=== PATIENT | female | born 1990 | race Caucasian/White ===

== ENCOUNTER 2020-09-17 05:04 | Inpatient (IN) | payer SELFPAY ==
[2020-09-17] VITALS (238 sets, daily range): BP systolic 57–134; BP diastolic 27–96; PULSE 63–131; TEMP 36.4–37.2; O2SAT 83–100
--- NOTE | 2020-09-17 05:04 | LDADM ---
This patient, Kasey Shea, was admitted to Labor/Delivery/Recovery 107 on 09/17/20 at 05:04. Plans for labor, pain management and were discussed with patient. Patient/family oriented to hospital policies and general routines including ID bracelet, bed and alarms, visiting hours, pain management, procedures, bathroom and other care routines, personal items, smoking policy, room service/diet and guest tray routines, infant security routines, and visiting hours. Patient/Family are encouraged to report perceived risks to care and to ask questions if they do not understand what they are told or what they should do. See OBIX for further documentation.
[2020-09-17 06:16] LABS: Basophils Percent Auto 0.5 % (0.2-1.2); Eosinophils Absolute Auto 0.4 K/mm3 (0-0.3); Eosinophils Percent Auto 4.4 % (0-4.4); Hemoglobin 12.1 g/dL (12.0-15.0); Immature Granulocyte Absolute 0.09 K/mm3 (0.00-0.031); Immature Granulocyte Percent A 1.1 % (0-0.5); Lymphocytes Absolute Auto 1.71 K/mm3 (0.9-3.2); Lymphocytes Percent Auto 21.3 % (18.3-44.2); Mean Corpuscular HGB Conc 35.6 g/dl (32-36); Mean Corpuscular Hemoglobin 30.4 pg (26-34); Mean Corpuscular Volume 85.4 fl (80-100); Monocytes Absolute Auto 0.7 K/mm3 (0.1-0.6); Monocytes Percent Auto 9.2 % (2.6-8.5); Neutrophils Absolute Auto 5.1 K/mm3 (1.3-6.7); Neutrophils Percent Auto 63.5 % (45.5-73.1); Platelet Count Result 137 k/mm3 (150-375); Red Blood Count 3.98 M/mm3 (4.2-5.4); Red Cell Distribution Width 14.1 % (11.5-14.5)
--- NOTE | 2020-09-17 06:19 | P.PNAN_ITS ---
Anes - Eval Pre Procedure Procedure: Labor epidural Date/Time: 09/17/20 06:19 Surgeon: viet Preop Diagnosis: pain during labor Pre Op Diagnosis: IOL Patient Data Age: 29 Gender: F Height: Weight: Last Vital Signs Pulse 92 09/17/20 06:15 BP 94/58 L 09/17/20 06:15 Allergies Allergy/AdvReac Type Severity Reaction Status Date / Time sulfamethoxazole Allergy Intermediate Hives / Verified 08/27/20 12:34 Red Face trimethoprim Allergy Intermediate Hives / Verified 08/27/20 12:34 Red Face Sulfa (Sulfonamide Allergy Unknown Hives / Verified 08/27/20 12:34 Antibiotics) Red Face Home Medications Medication Instructions Recorded Confirmed Type cetirizine [Zyrtec] 10 mg PO DAILY 08/27/20 08/27/20 History cholecalciferol (vitamin D3) 50 mcg PO DAILY 08/27/20 08/27/20 History [Vitamin D3] ergocalciferol (vitamin D2) 1,250 mcg PO WEEKLY 08/27/20 08/27/20 History [Vitamin D2] famotidine [Pepcid AC] 10 mg PO DAILY 08/27/20 08/27/20 History ferrous sulfate 325 mg PO DAILY 08/27/20 08/27/20 History prenat.vits,wendi,pzr-nawn-cstnb 1 tablet PO DAILY 08/27/20 08/27/20 History [ #2] Laboratory Tests 09/17/20 09/17/20 05:56 05:56 WBC 8.0 K/mm3 K/mm3 (4.5-10.0) RBC 3.98 M/mm3 L M/mm3 (4.2-5.4) Hgb 12.1 g/dL g/dL (12.0-15.0) Hct 34.0 % L % (37.0-47.0) MCV 85.4 fl fl (80-100) MCH 30.4 pg pg (26-34) MCHC 35.6 g/dl g/dl (32-36) RDW 14.1 % % (11.5-14.5) Plt Count 137 k/mm3 L k/mm3 (150-375) MPV 10.0 fl fl (7.4-10.4) Immature Gran % (Auto) 1.1 % H % (0-0.5) Neut % (Auto) 63.5 % % (45.5-73.1) Lymph % (Auto) 21.3 % % (18.3-44.2) [place] % (Auto) 9.2 % H % (2.6-8.5) Eos % (Auto) 4.4 % % (0-4.4) Baso % (Auto) 0.5 % % (0.2-1.2) Lymph # (Auto) 1.71 K/mm3 K/mm3 (0.9-3.2) [place] # (Auto) 0.7 K/mm3 H K/mm3 (0.1-0.6) Eos # (Auto) 0.4 K/mm3 H K/mm3 (0-0.3) Baso # (Auto) 0.0 K/mm3 K/mm3 (0.0-0.1) Abs Immat Gran (auto) 0.09 K/mm3 H K/mm3 (0.00-0.031) Absolute Neuts (auto) 5.1 K/mm3 K/mm3 (1.3-6.7) Absolute Nucleated RBC 0.0 K/mm3 K/mm3 (0.0-0.012) Nucleated RBC % 0.0 % % (0.0-0.2) RPR Pending Patient hx anesthesia problems: none Family hx anesthesia problems: none [facility] Family History Family History (Updated 08/27/20 @ 12:41 by Nika Mata RN) Father Pre-diabetes High cholesterol Hypertension Social History Social History Substance use: never Spiritual care concerns: No Exam Day of Procedure 09/17/20 06:19
[2020-09-17] MEDS: OXYTOCIN 30 UNITS/NS 500 ML 30 UNITS/500 ML BAG IV CONT (06:30)
[2020-09-17] MEDS: LACTATED RINGERS 1,000 ML 125 ML IV CONT ×4 (06:30→18:26)
--- NOTE | 2020-09-17 08:33 | WPDOBADMIT ---
Obstetrics - Admit Note Admission Note: record reviewed. No pertinent additions to the history and/or any subsequent changes in the physical findings that are not consistent with the expected course of the were found. Additions to the history and/or subsequent changes in the physical findings follow. None.Here for MIL. Cervix 250/-3 AROM with clear fluid. FHTS reactive
[2020-09-17 13:02] LABS: Rapid Plasma Reagin Non-Reactive (NonReactive)
[2020-09-17] MEDS: ONDANSETRON INJ 4 MG/2 ML VIAL IV PUSH (19:27)
--- NOTE | 2020-09-17 22:57 | PM.OBPRVD ---
OB - Delivery Note Procedure Delivery date: 09/17/20 Procedure: 39 week IUP events: Labor Induction Intrapartal events: None Induction method: AROM and per pitocin protocol Delivery monitor: internal FHT and internal uterine Route of delivery: Laceration Description: None Specimen: No Quantitative Blood Loss (ml): 200 Anesthesia type: Epidural Disposition: floor [place] Baby Date of : 09/17/20 Weeks of gestation at delivery: 39 Infant gender: Female presentation: vertex position: Right Occiput Anterior Placenta delivery description: Spontaneous cord vessel description: 3 Vessels score one minute: 9 score five minutes: 9
--- NOTE | 2020-09-17 22:59 | PM.OBDSVD ---
DS: Admitting Diagnosis Admitting Diagnosis Admitting Diagnosis: IUP 39 wks for RAFAEL DS: Discharge Diagnosis Discharge Diagnosis (1) (normal spontaneous vaginal delivery): Code(s): O80 - Encounter for full-term uncomplicated delivery Status: Acute (2) 39 weeks gestation of : Code(s): Z3A.39 - 39 weeks gestation of Status: Acute OB - DS: Summary OB Procedures : Ultrasound OB Procedures Intrapartum: Spontaneous Vag Delivery OB Procedures: : None Peripartum Data Delivery Method: Natural Vaginal Laceration Description: None complications: none Status at Discharge Functional status at discharge: independent ambulation Overall status at discharge: patient is progressing back to baseline Time Spent with Patient Time attestation: Total time spent providing and/or coordinating discharge services: DS: Data Data Completed and Pending Labs on day of discharge: Labs from last 24 hours 09/17/20 09/17/20 09/17/20 05:56 05:56 05:56 WBC 8.0 RBC 3.98 L Hgb 12.1 Hct 34.0 L MCV 85.4 MCH 30.4 MCHC 35.6 RDW 14.1 Plt Count 137 L MPV 10.0 Immature Gran % (Auto) 1.1 H Neut % (Auto) 63.5 Lymph % (Auto) 21.3 [place] % (Auto) 9.2 H Eos % (Auto) 4.4 Baso % (Auto) 0.5 Lymph # (Auto) 1.71 [place] # (Auto) 0.7 H Eos # (Auto) 0.4 H Baso # (Auto) 0.0 Abs Immat Gran (auto) 0.09 H Absolute Neuts (auto) 5.1 Absolute Nucleated RBC 0.0 Nucleated RBC % 0.0 RPR Non-reactive Blood Type A Positive Antibody Screen Negative Discharge Plan Discharge Attending physician on discharge: Abeba Raman Discharging Clinician: Abeba Raman Anticipated Discharge Date/Time: 09/19/20 23:00 Patient Disposition: Home, Self-Care Activity: may shower and pelvic rest Diet: regular Patient Instructions: Antibiotic Form Stand Alone Forms: General Discharge Information Follow-up/Referrals: Abeba Raman MD [Physician] - 6 Weeks Discharge Medications: Continued famotidine [Pepcid AC] 10 mg Tablet 10 mg PO DAILY RF: 0 ergocalciferol (vitamin D2) [Vitamin D2] 1,250 mcg (50,000 unit) Capsule 1,250 mcg PO WEEKLY RF: 0 #2 Tablet 1 tablet PO DAILY RF: 0 cholecalciferol (vitamin D3) [Vitamin D3] 50 mcg (2,000 unit) Capsule 50 mcg PO DAILY RF: 0 Zyrtec 10 mg Capsule 10 mg PO DAILY RF: 0 Discontinued ferrous sulfate 325 mg (65 mg iron) Tablet 325 mg PO DAILY RF: 0 Date of admission: 09/17/20 05:04 Primary Care Provider: PHYSICIAN,FINAL INSPECTOR AND TESTER Admitting Provider: Abeba Raman Attending physician on admission: Abeba Raman Condition: Stable Care Plan Goals: Plans Liletta IUD for bc
[2020-09-17] MEDS: OXYTOCIN 30 UNITS/NS 500 ML 30 UNITS/500 ML BAG 125 UNITS IV CONT (23:18)
[2020-09-18] VITALS (20 sets, daily range): BP systolic 104–116; BP diastolic 52–92; PULSE 74–104; RESP 16–18; TEMP 36.7–36.8; O2SAT 97–100; BMI 41.3
[2020-09-18] MEDS: IBUPROFEN 600 MG TABLET PO ×4 (00:57→23:55)
[2020-09-18] MEDS: WITCH HAZEL 40 PADS 1 PAD TOPICAL (00:57)
--- NOTE | 2020-09-18 01:25 | OBPPTRN ---
Patient transferred to post room #284 via wheelchair. Support person present. Oriented to unit, room, information board, rooming in, admission packet and security measures. Patient verbalizes understanding.
[2020-09-18] MEDS: ACETAMINOPHEN 325 MG TABLET 650 MG PO ×3 (02:00→21:00)
[2020-09-18 05:10] LABS: Hematocrit 32.5 % (37.0-47.0); Hemoglobin 11.1 g/dL (12.0-15.0)
--- NOTE | 2020-09-18 07:46 | PM.OBPNVD ---
OB - PN: Subj Subjective Date/time seen: 09/18/20 07:46 Patient comments: no complaints and pain well controlled baby status: doing well OB - PN: Obj Data Labs CBC & Chem 7: 09/18/20 04:47 Labs: Laboratory Results - last 24 hr 09/17/20 09/18/20 05:56 04:47 Hgb 11.1 L Hct 32.5 L RPR Non-reactive OB - PN A/P Assessment and Plan (1) (normal spontaneous vaginal delivery): Code(s): O80 - Encounter for full-term uncomplicated delivery Status: Acute Plan day: 1 Plan: routine care and other (plans Andres for bc) Time Spent With Patient Time: Total time spent is greater than 50% in coordination of care (as documented) at patient's floor/unit and/or counseling patient: Exam : Bimanual exam- vagina & uterus: other (Uterus firm, nt @U)
--- NOTE | 2020-09-18 07:55 | WPDANLDPN2 ---
Anes-Prog Note L&D Date/Time: 09/18/20 07:55 Comfortable throughout: labor and delivery Neuraxial method: epidural Epidural/Spinal procedure site: clean & non-tender Neuro status: Neuro function grossly intact. Cardiovascular status: normal Respiratory status: normal Airway patency: baseline Mental status: baseline Post-Op hydration status: normal Vital Signs: Last Vital Signs Temp 36.7 C 09/18/20 01:25 Pulse 82 09/18/20 01:25 Resp 16 09/18/20 01:25 BP 106/62 09/18/20 01:25 Pulse Ox 98 09/18/20 01:25 Pain score (VAS): no complaints I/O: Intake & Output 09/17/20 09/17/20 09/18/20 15:59 23:59 07:59 Intake Total 2000 1500 Output Total 200 150 Balance 2000 1300 -150 Post-procedural complaints: none Patient feedback: Patient satisfied with anesthetic care.
[2020-09-18] MEDS: MULTIVIT/MIN/PREN/FOL AC/IRON TABLET 1 TAB PO (08:11)
[2020-09-18] MEDS: DOCUSATE SODIUM 100 MG CAPSULE PO (08:11)
[2020-09-18] MEDS: FAMOTIDINE 10 MG TABLET PO (08:12)
--- NOTE | 2020-09-19 06:22 | PM.OBPNVD ---
OB - PN: Subj Subjective Date/time seen: 09/19/20 06:22 Patient comments: no complaints baby status: doing well OB - PN: Obj Data Labs CBC & Chem 7: 09/18/20 04:47 OB - PN A/P Plan day: 2 Plan: routine care, discharge home, follow up 6 weeks and other (charla) Time Spent With Patient Time: Total time spent is greater than 50% in coordination of care (as documented) at patient's floor/unit and/or counseling patient: Exam : Bimanual exam- vagina & uterus: other (Uterus firm, nt @U)
[2020-09-19] MEDS: MULTIVIT/MIN/PREN/FOL AC/IRON TABLET 1 TAB PO (08:01)
[2020-09-19] MEDS: DOCUSATE SODIUM 100 MG CAPSULE PO (08:01)
[2020-09-19] MEDS: WITCH HAZEL 40 PADS 1 PAD TOPICAL (08:01)
[2020-09-19] MEDS: BENZOCAINE 20% AER SPR (*SP) 56 GM CAN 1 SPRAY TOPICAL (08:01)
[2020-09-19] MEDS: LANOLIN (LANSINOH) 7.5 GM CREAM 1 APPLIC TOPICAL (08:02)
[2020-09-19 08:05] VITALS: BP 111/72; PULSE 63; RESP 18; TEMP 37; O2SAT 99
--- NOTE | 2020-09-19 08:48 | PC.NURSE ---
Consulted with patient, reviewed infant feeding cues, frequencies, duration of feedings, feeding elimination flow sheet, and signs of adequate intake. Mom put infant to breast independently. Reviewed positioning/alignment, holding breast and asymmetrical latch on. Encouraged mom to keep in close to her with tummy to mummy and provide head support during feeding. was able to latch correctly. Infant nursed eagerly, with steady draws and frequent swallowing noted. Reviewed signs of a correct latch, effective nursing and suck swallow ratio. Infant was able to maintain latch without discomfort to mother. Nipple care reviewed. Instructed mother to call out for RN assistance if she is unable to latch for feeding or she has discomfort with nursing. Instructed feeding should be initiated three hours from start of last feeding or if feeding cues are noted before. Mother voiced understanding of information shared. Mother verbalizes she is able to independently latch with appropriate positioning/alignment. She states she has minimal nipple discomfort only at the first latch, is feeding as required and waking infant to feed if needed. Infant has had 8 effective feedings in the past 24 hours, and is currently meeting outcomes for weight, output, jaundice and feeding frequencies. Will continue to monitor for more stool output. Mother states she feels confident to continue effective at home. Reviewed transition to breast milk, signs of adequate intake, and engorgement/relief. Instructed to call ICP if intake/output less than required. Reviewed community resources on the [facility] website and in the Mom/Baby guide. Information on outpatient services provided. Mother has no further questions at this time.
[2020-09-19 09:05] VITALS: PULSE 74; RESP 16; O2SAT 97
[2020-09-19] MEDS: IBUPROFEN 600 MG TABLET PO (09:08)
[2020-09-20 10:45] VITALS: BP 127/78; PULSE 75; RESP 20; TEMP 36.9; O2SAT 100
== END 2020-09-19 12:00 | disposition home or self-care (01) | DRG 560 ==
LOC: ANHLDR 23:01 → ANHOB2 09-18 01:59
PROVIDERS: Admitting Provider Obstetrics & Gynecology Gynecology; Visit Provider Obstetrics & Gynecology Gynecology
DX: O36.8330 Maternal care for abnormalities of the fetal heart rate or rhythm, third trimester, not applicable or unspecified (principal); Z37.0 Single live birth; Z3A.39 39 weeks gestation of pregnancy
CPT/HCPCS: 36415; 85014; 85018; 85025; 86592; 86850; 86900; 86901; A9270; J2405; J2590; J2795; J7120

== ENCOUNTER 2022-07-24 21:32 | Emergency (ER) | payer SELFPAY ==
[2022-07-24 21:39] VITALS: BP 134/94; PULSE 80; RESP 16; TEMP 36.6; O2SAT 96
--- NOTE | 2022-07-24 21:58 | ED.GENADULT ---
HPI - General Adult General Chief complaint: Nausea/Vomiting/Diarrhea Stated complaint: n/v/d, hives Time Seen by Provider: 07/24/22 21:49 Source: patient Mode of arrival: ambulatory Limitations: no limitations History of Present Illness HPI narrative: Presents c/o developing hives this afternoon which then lead to N/V/D. Reports multiple episodes diarrhea with continued nausea currently. States hives resolved after taking Benadryl this afternoon. Denies diff breathing, swallowing or swelling of tongue. LMP 1 week ago. Related Data Home Medications Medication Instructions Recorded Confirmed prenat.vits,wendi,uae-vgxe-mlsyi 1 tablet PO DAILY 08/27/20 08/27/20 clindamycin phosphate 1 % topical 1 applic topical DAILY 06/25/22 solution fluticasone propionate 50 1 spray intranasal DAILY 06/25/22 mcg/actuation nasal spray,suspension (Flonase Allergy Relief) olopatadine 0.2 % eye drops 1 drp EACH EYE DAILY 06/25/22 (Pataday Once Daily Relief) Allergies Allergy/AdvReac Type Severity Reaction Status Date / Time sulfamethoxazole Allergy Intermediate Hives / Verified 09/24/21 14:28 Red Face trimethoprim Allergy Intermediate Hives / Verified 09/24/21 14:28 Red [place] Sulfa (Sulfonamide Allergy Unknown Hives / Verified 09/24/21 14:28 Antibiotics) Red Face sulfamethizole Allergy Unknown Verified 09/24/21 14:28 Review of Systems Review of Systems: CONSTITUTIONAL: Denies fever, chills, or sweats. EYES: Denies visual changes, redness, or discharge. ENT: Denies rhinorrhea, congestion, sore throat, or otalgia. CARDIOVASCULAR: Denies chest pain, palpitations, or edema. RESPIRATORY: Denies cough or dyspnea. GASTROINTESTINAL: Nausea with Diarrhea currently. Vomiting this afternoon. GENITOURINARY: Denies dysuria or hematuria. SKIN: Rash, hives with itching this afternoon but resolved following benadryl. MUSCULOSKELETAL: Denies back pain, joint pain, or myalgia. NEUROLOGIC: Denies headache, numbness, or weakness. PSYCHIATRIC: Denies anxiety or depression. [facility] Past Medical History Medical History (Updated 07/24/22 @ 23:27 by Moris Frey APRN) PCOS (polycystic ovarian syndrome) Plantar fasciitis Seasonal allergic rhinitis Vitamin D deficiency Surgical History Surgical History History of cholecystectomy Family History Family History (Updated 06/25/22 @ 10:18 by Arianne Medellin CMA) Father Pre-diabetes High cholesterol Hypertension Asthma Mother No problems noted. Sibling Anxiety Grandparent Rheumatoid arthritis Grandparent Diabetes mellitus Social History Social History (Updated 06/25/22 @ 10:04 by Arianne Medellin CMA) Smoking status: Never smoker Second hand tobacco smoke exposure: No Alcohol intake: current Substance use: never Substance use type: does not use Gender identity (if verbalized by the patient): Female Sexual Orientation (if Verbalized by the Patient): Straight or Heterosexual Spiritual care concerns: No Agree to blood products: Yes Exam Narrative: GENERAL: Well-appearing, well-nourished, and in no acute distress. HEAD: Normocephalic, atraumatic. EYES: PERRLA and EOMI. ENT: Nares clear, no rhinorrhea or epistaxis. Mucous membranes moist. NECK: Supple. CHEST: Clear to auscultation. No respiratory distress. HEART: Regular rate and rhythm. No murmur heard. Normal peripheral pulses. ABDOMEN: Soft, nontender, nondistended, normal active bowel sounds. EXTREMITIES: Normal range of motion. No edema. SKIN: Warm, dry, no rash. NEURO: No focal deficits. Alert and oriented x3. PSYCH: Normal mood and affect. Course Course Emergency Course: Patient reports feeling much better following medication and IV fluids. States she is ready to go home. Offered to provide a prescription for Zofran for nausea vomiting at home but patient declined stating she did not ne
[2022-07-24] MEDS: SODIUM CHLORIDE 0.9% IV 1,000 ML 999 ML IV CONT (22:16)
[2022-07-24] MEDS: PROCHLORPERAZINE EDISYLATE 10 MG/2 ML VIAL IV PUSH (22:16)
[2022-07-24] MEDS: diphenhydrAMINE HCl INJ 50 MG/ML VIAL 25 MG IV PUSH (22:16)
[2022-07-24 22:21] LABS: Basophils Percent Auto 0.3 % (0.2-1.2); Eosinophils Absolute Auto 0.1 K/mm3 (0-0.3); Eosinophils Percent Auto 0.4 % (0-4.4); Hematocrit 44.6 % (37.0-47.0); Immature Granulocyte Absolute 0.03 K/mm3 (0.00-0.031); Immature Granulocyte Percent A 0.2 % (0-0.5); Lymphocytes Absolute Auto 0.95 K/mm3 (0.9-3.2); Lymphocytes Percent Auto 7.9 % (18.3-44.2); Mean Corpuscular HGB Conc 33.6 g/dl (32-36); Mean Corpuscular Hemoglobin 28.6 pg (26-34); Mean Platelet Volume 9.8 fl (7.4-10.4); Monocytes Absolute Auto 0.5 K/mm3 (0.1-0.6); Monocytes Percent Auto 3.8 % (2.6-8.5); Neutrophils Absolute Auto 10.5 K/mm3 (1.3-6.7); Neutrophils Percent Auto 87.4 % (45.5-73.1); Platelet Count Result 276 k/mm3 (150-375); Red Blood Count 5.25 M/mm3 (4.2-5.4); Red Cell Distribution Width 12.5 % (11.5-14.5); White Blood Count 12.1 K/mm3 (4.5-10.0)
[2022-07-24 22:22] LABS: Appearance Urine Clear (Clear); Bilirubin Urine 1+ (Negative); Blood Urine Negative (Negative); Color Urine Yellow (Yellow); Glucose Urine UA Negative (Negative); Ketones Urine 3+ mg/dL (Negative); Leukocyte Esterase Ur Negative LEU/UL (Negative); Nitrate Urine Negative (Negative); Protein Urine Negative (Negative); Specific Grav Ur >= 1.030 (1.001-1.035); Urobilinogen Urine 0.2 mg/dL (<2.0); pH Urine 5.5 (5.0-9.0)
[2022-07-24 22:29] LABS: Mucus Urine Few /lpf; Squamous Epithelial Cell Urine Many /hpf (Few)
[2022-07-24 22:30] LABS: Alanine Aminotransferase 33 U/L (6-35); Albumin Level 4.8 g/dL (3.5-5.1); Alkaline Phosphatase 65 U/L (38-126); Anion Gap 16 mmol/L (8-16); Aspartate Amino Transferase 36 U/L (14-36); Bilirubin,Total 0.6 mg/dL (0.2-1.3); Blood Urea Nitrogen 15 mg/dL (7-17); Calcium 9.1 mg/dL (8.4-10.2); Carbon Dioxide 25 mmol/L (22-30); Chloride 100 mmol/L (98-107); Estimated CRCL calculation 96 ml/min; Estimated Glomerular Filt Rate > 60; Glucose 115 mg/dL (65-110); Lipase 184 U/L (23-300); Potassium 3.9 mmol/L (3.4-5.0); Sodium 141 mmol/L (137-145)
[2022-07-24 22:36] LABS: Add Urine Microscopic? YES
[2022-07-24 23:36] VITALS: BP 114/76; PULSE 86; RESP 14; O2SAT 96
== END 2022-07-24 23:36 | disposition home or self-care (01) ==
PROVIDERS: Emergency Provider Nurse Practitioner; PCP Family Medicine
DX: T78.40XA Allergy, unspecified, initial encounter (principal); R19.7 Diarrhea, unspecified; R11.2 Nausea with vomiting, unspecified; E28.2 Polycystic ovarian syndrome; E55.9 Vitamin D deficiency, unspecified
CPT/HCPCS: 36415; 80053; 81001; 81025; 83690; 85025; 96361; 96374; 96375; 99284; J0780; J1200; J7030

== ENCOUNTER → 2023-07-13 10:19 | Outpatient (CLI) | payer SELFPAY ==
--- NOTE | ~2023-07-13 | US_ITS ---
EXAMINATION: US OB follow up DATE: 07/13/2023 10:58 INDICATION: Possible breech position TECHNIQUE: Real-time transabdominal obstetric ultrasound. FINDINGS: No prior studies for comparison. There is a single living fetus in breech presentation. The placenta is posterior/fundal without plac enta previa. Placental margin to the cervix is 4.4 cm. Amniotic fluid index is normal measuring 15.6 cm. cardiac activity and movement is noted with a heart rate of 144 beats per minute. T he amniotic fluid volume is normal. The following biometric data were obtained: BPD: 88mm corresponds to gestational age 35 weeks 3 days. Head circumference: 314mm corresponds to gestational age 35 weeks 2 days. Abdominal circumference: 332mm corresponds to gestational age 37 weeks 1 days. Femur length: 69mm corresponds to gestational age 35 weeks 2 days. Estimated weight: 2893grams +/- 434grams.] IMPRESSION: 1. Single living intrauterine in breech presentation with an estimated gestational age of 35 weeks 6 days by current ultrasound. 2. Normal placenta. Reviewed, dictated and finalized at location B. IMPRESSION: 1. Single living intrauterine in breech presentation with an estimat ed gestational age of 35 weeks 6 days by current ultrasound. 2. Normal placenta.
== END ==
PROVIDERS: PCP Advanced Practice Midwife; Visit Provider Advanced Practice Midwife
DX: O32.1XX0 Maternal care for breech presentation, not applicable or unspecified (principal); Z3A.35 35 weeks gestation of pregnancy
CPT/HCPCS: 76816

== ENCOUNTER 2023-07-30 10:55 | Inpatient (IN) | payer SELFPAY ==
[2023-07-30] VITALS (116 sets, daily range): BP systolic 54–220; BP diastolic 29–197; PULSE 66–276; RESP 16; TEMP 36.5–37.5; O2SAT 82–100; BMI 40.2
[2023-07-30] MEDS: LACTATED RINGERS 1,000 ML 125 ML IV CONT ×3 (11:30→21:44)
--- NOTE | 2023-07-30 12:03 | WPDOBADMIT ---
Obstetrics - Admit Note Admission Note: record reviewed. No pertinent additions to the history and/or any subsequent changes in the physical findings that are not consistent with the expected course of the were found. Additions to the history and/or subsequent changes in the physical findings follow. Here at 38 5/7 wks with SROM in early labor. Per RN cervix 2-3/60/-2 and per u/s just now Vertex presentation. Will Obs for 6 hours and augment if needed with pitocin. FHTs with variable x 2. Continue close monitoring.
[2023-07-30 12:18] LABS: Basophils Percent Auto 0.4 % (0.2-1.2); Eosinophils Absolute Auto 0.3 K/mm3 (0-0.3); Eosinophils Percent Auto 2.5 % (0-4.4); Hematocrit 35.8 % (37.0-47.0); Hemoglobin 11.8 g/dL (12.0-15.0); Immature Granulocyte Absolute 0.05 K/mm3 (0.00-0.031); Immature Granulocyte Percent A 0.5 % (0-0.5); Lymphocytes Absolute Auto 1.04 K/mm3 (0.9-3.2); Lymphocytes Percent Auto 10.3 % (18.3-44.2); Mean Corpuscular Hemoglobin 28.5 pg (26-34); Mean Corpuscular Volume 86.5 fl (80-100); Mean Platelet Volume 10.1 fl (7.4-10.4); Monocytes Absolute Auto 0.6 K/mm3 (0.1-0.6); Monocytes Percent Auto 5.9 % (2.6-8.5); Neutrophils Absolute Auto 8.1 K/mm3 (1.3-6.7); Neutrophils Percent Auto 80.4 % (45.5-73.1); Platelet Count Result 131 k/mm3 (150-375); Red Blood Count 4.14 M/mm3 (4.2-5.4); Red Cell Distribution Width 14.4 % (11.5-14.5); White Blood Count 10.1 K/mm3 (4.5-10.0)
--- NOTE | 2023-07-30 14:10 | ADMGEN ---
This patient, Kasey Shea, was admitted to Labor/Delivery/Recovery 105-00. Patient/family oriented to hospital policies and general routines including ID bracelet, bed and alarms, visiting hours, pain management, procedures, bathroom and other care routines, personal items, smoking policy, room service/diet, and visiting hours. Information on how to activate the Rapid Response Team has been discussed. Patient/Family are encouraged to report perceived risks to care and to ask questions if they do not understand what they are told or what they should do.
[2023-07-30 14:27] LABS: Rapid Plasma Reagin Non-Reactive (NonReactive)
[2023-07-30] MEDS: SODIUM CHLORIDE 0.9% IV 300 ML 600 ML I-UTERINE (15:05)
[2023-07-30] MEDS: SODIUM CHLORIDE 0.9% IV 1,000 ML 125 ML I-UTERINE ×2 (15:35→20:54)
[2023-07-30] MEDS: OXYTOCIN 30 UNITS/NS 500 ML 30 UNITS/500 ML BAG IV CONT (15:43)
--- NOTE | 2023-07-30 16:29 | WPDANESEPP ---
Anes - Eval Pre Procedure Procedure: Operation Date: 08/04/23 07:30 Proposed Procedures p Section - Abeba Raman MD Date/Time: 07/30/23 16:29 Pre Op Diagnosis: labor Patient Data Age: 32 Gender: F Height: 1.6 m Weight: 103 kg Last Vital Signs Temp 36.5 C 07/30/23 15:00 Pulse 94 07/30/23 16:01 BP 136/75 07/30/23 16:01 Pulse Ox 99 07/30/23 11:18 O2 Del Method Room Air 07/30/23 14:07 Allergies Allergy/AdvReac Type Severity Reaction Status Date / Time sulfamethoxazole Allergy Intermediate Hives / Verified 07/30/23 14:03 Red Face trimethoprim Allergy Intermediate Hives / Verified 07/30/23 14:03 Red [place] Sulfa (Sulfonamide Allergy Unknown Hives / Verified 07/30/23 14:03 Antibiotics) Red [place] sulfamethizole Allergy Unknown Rash Verified 07/30/23 14:03 Home Medications Medication Instructions Recorded Confirmed Type prenat.vits,wendi,ata-jrqb-vxnep 1 tablet PO DAILY 08/27/20 07/30/23 History clindamycin phosphate 1 % topical 1 applic topical DAILY 06/25/22 07/30/23 History solution fluticasone propionate 50 1 spray intranasal DAILY 06/25/22 07/30/23 History mcg/actuation nasal spray,suspension (Flonase Allergy Relief) olopatadine 0.2 % eye drops 1 drp EACH EYE DAILY 06/25/22 07/30/23 History (Pataday Once Daily Relief) cholecalciferol (vitamin D3) 50 50 mcg PO DAILY 07/13/23 07/30/23 History mcg (2,000 unit) tablet B6-500 50 mg PO DAILY 07/30/23 07/30/23 History Unisom (diphenhydramine) 1 tab-cap PO DAILY 07/30/23 07/30/23 History Laboratory Tests 07/30/23 12:13 WBC 10.1 H K/mm3 (4.5-10.0) RBC 4.14 L M/mm3 (4.2-5.4) Hgb 11.8 L D g/dL (12.0-15.0) Hct 35.8 L % (37.0-47.0) MCV 86.5 fl (80-100) MCH 28.5 pg (26-34) MCHC 33.0 g/dl (32-36) RDW 14.4 % (11.5-14.5) Plt Count 131 L D k/mm3 (150-375) MPV 10.1 fl (7.4-10.4) Immature Gran % (Auto) 0.5 % (0-0.5) Neut % (Auto) 80.4 H % (45.5-73.1) Lymph % (Auto) 10.3 L % (18.3-44.2) [place] % (Auto) 5.9 % (2.6-8.5) Eos % (Auto) 2.5 % (0-4.4) Baso % (Auto) 0.4 % (0.2-1.2) Lymph # (Auto) 1.04 K/mm3 (0.9-3.2) [place] # (Auto) 0.6 K/mm3 (0.1-0.6) Eos # (Auto) 0.3 K/mm3 (0-0.3) Baso # (Auto) 0.0 K/mm3 (0.0-0.1) Abs Immat Gran (auto) 0.05 H K/mm3 (0.00-0.031) Absolute Neuts (auto) 8.1 H K/mm3 (1.3-6.7) Absolute Nucleated RBC 0.0 K/mm3 (0.0-0.012) Nucleated RBC % 0.0 % (0.0-0.2) RPR Non-reactive (NonReactive) Blood Type A Positive Antibody Screen Negative Patient hx anesthesia problems: none Family hx anesthesia problems: none Results Review: All pre-operative results and documents have been reviewed as part of the pre-operative evaluation. [facility] Past Medical History Medical History (Updated 07/30/23 @ 16:30 by Arianne Solomon CRNA) Anxiety GERD (gastroesophageal reflux disease) Morbid obesity PCOS (polycystic ovarian syndrome) Plantar fasciitis Post depression Seasonal allergic rhinitis Vitamin D deficiency Surgical History Surgical History History of cholecystectomy Family History Family History Father Pre-diabetes High cholesterol Hypertension Asthma Mother No problems noted. Sibling Anxiety Grandparent Rheumatoid arthritis Grandparent Diabetes mellitus Social History Social History Smoking status: Never smoker Second hand tobacco smoke exposure: No Alcohol intake: current Substance use: never Substance use type: does not use Lack of Transportation: No Lack of Food: Never True Current Housing: I Have Housing Concerned About Future Housing: No Difficulty Paying Gas/Electric Bills: No Difficulty
[2023-07-30] MEDS: LACTATED RINGERS 500 ML 999 ML IV CONT (19:30)
[2023-07-30] MEDS: PHENYLEPHRINE 1,000 MCG/10 ML SYRINGE 100 MCG IV PUSH ×9 (20:23→21:46)
[2023-07-30] MEDS: OXYTOCIN 30 UNITS/NS 500 ML 30 UNITS/500 ML BAG 999 UNITS IV CONT (23:29)
--- NOTE | 2023-07-30 23:37 | PM.OBPRVD ---
OB - Vaginal Delivery Note Procedure Delivery date: 07/30/23 Delivery augmentation: Pitocin Delivery monitor: External FHT and Internal Uterine Route of delivery: Episiotomy description: None Laceration Description: None Specimen: Yes (placenta) Quantitative Blood Loss (ml): 100 Anesthesia type: Epidural Disposition: Floor Complications: No immediate complications Narrative: Throughout labor patient tracing with variable decelerations. Treated with position change, fluids, and amnioinfusion. After epidural, BP low and was treated multiple times. Good variability throughout. Tight nuchal cord noted at delivery Baby Date of : 07/30/23 Weeks of gestation at delivery: 38 (38 5/7) Infant gender: Male presentation: vertex position: Right Occiput Anterior Placenta delivery description: Spontaneous and Normal Configuration Cord Vessel Description: 3 Vessels, Nuchal Cord (tight, delivered through) and Delayed Cord Clamping score one minute: 7 score five minutes: 9
--- NOTE | 2023-07-30 23:40 | PM.OBDSVD ---
DS: Admitting Diagnosis Discharge Date 08/01/23 <Abeba Raman MD - Last Filed: 08/06/23 07:21> Admitting Diagnosis SROM at 38 5/7 wks <Abeba Raman MD - Last Filed: 08/06/23 07:21> DS: Discharge Diagnosis Discharge Diagnosis (1) (normal spontaneous vaginal delivery): Code(s): O80 - Encounter for full-term uncomplicated delivery <Abeba Raman MD - Last Filed: 08/06/23 07:21> Status: Acute <Abeba Raman MD - Last Filed: 08/06/23 07:21> OB - DS: Summary OB Procedures : Ultrasound <Abeba Raman MD - Last Filed: 08/06/23 07:21> OB Procedures Intrapartum: Spontaneous Vag Delivery <Abeba Raman MD - Last Filed: 08/06/23 07:21> OB Procedures: : None <Abeba Raman MD - Last Filed: 08/06/23 07:21> Peripartum Data Delivery Method: Natural Vaginal <Abeba Raman MD - Last Filed: 08/06/23 07:21> Laceration Description: None <Abeba Raman MD - Last Filed: 08/06/23 07:21> Episiotomy description: None <Abeba Raman MD - Last Filed: 08/06/23 07:21> Procedures: Procedures Operation Date: 08/04/23 07:30 <No data on this case meets the specified criteria> <Abeba Raman MD - Last Filed: 08/06/23 07:21> complications: none <Abeba Raman MD - Last Filed: 08/06/23 07:21> 1: Gender: Male <Anamika Hoffmann MD - Last Filed: 08/01/23 09:10> Disposition of : home <Anamika Hoffmann MD - Last Filed: 08/01/23 09:10> Status at Discharge Functional status at discharge: independent ambulation <Abeba Raman MD - Last Filed: 08/06/23 07:21> Overall status at discharge: patient is progressing back to baseline <Abeba Raman MD - Last Filed: 08/06/23 07:21> Time Spent with Patient Time attestation: Total time spent providing and/or coordinating discharge services: <Abeba Raman MD - Last Filed: 08/06/23 07:21> Exam Const: General: cooperative, comfortable, no acute distress and obese <Anamika Hoffmann MD - Last Filed: 08/01/23 09:10> Orientation/consciousness: patient oriented x3 <Anamika Hoffmann MD - Last Filed: 08/01/23 09:10> Resp: Effort & Inspection: normal respiratory effort <Anamika Hoffmann MD - Last Filed: 08/01/23 09:10> Auscultation: clear to auscultation bilaterally <Anamika Hoffmann MD - Last Filed: 08/01/23 09:10> Cardio: Rate: regular rate <Anamika Hoffmann MD - Last Filed: 08/01/23 09:10> GI: Inspection: non-distended <Anamika Hoffmann MD - Last Filed: 08/01/23 09:10> GI Palp: No abdominal tenderness and Yes Soft to palpation <Anamika Hoffmann MD - Last Filed: 08/01/23 09:10> Auscultation: normal bowel sounds <Anamika Hoffmann MD - Last Filed: 08/01/23 09:10> : Other: fundus firm at umbilicus <Anamika Hoffmann MD - Last Filed: 08/01/23 09:10> Skin: General skin exam: normal color <Anamika Hoffmann MD - Last Filed: 08/01/23 09:10> Neuro: General: patient oriented x3 <Anamika Hoffmann MD - Last Filed: 08/01/23 09:10> Extrem: General: normal to inspection <Anamika Hoffmann MD - Last Filed: 08/01/23 09:10> Psych: Appearance: grossly normal <Anamika Hoffmann MD - Last Filed: 08/01/23 09:10> Affect: normal affect <Anamika Hoffmann MD - Last Filed: 08/01/23 09:10> Attitude: cooperative <Anamika Hoffmann MD - Last Filed: 08/01/23 09:10> DS: Data Data Completed and Pending Labs on day of discharge: Labs from last 24 hours 07/30/23 12:13 WBC 10.1 H RBC 4.14 L Hgb 11.8 L D Hct 35.8 L MCV 86.5 MCH 28.5 MCHC 33.0 RDW 14.4 Plt Count 131 L D MPV 10.1 Immature Gran % (Auto) 0.5 Neut % (Auto) 80.4 H Lymph % (Auto) 10.3 L [place] % (Auto) 5.9 Eos % (Auto) 2.5 Baso % (Auto) 0.4 Lymph # (Auto) 1.04 [place] # (Auto) 0.6 Eos # (Auto) 0.3 Baso
[2023-07-31] VITALS (15 sets, daily range): BP systolic 63–121; BP diastolic 49–76; PULSE 62–99; RESP 16–18; TEMP 36.4–37.1; O2SAT 97–99
[2023-07-31] MEDS: OXYTOCIN 30 UNITS/NS 500 ML 30 UNITS/500 ML BAG 125 UNITS IV CONT (00:04)
--- NOTE | 2023-07-31 02:32 | PC.NURSE ---
Patient transferred to post room #290 via ( W/C ). Support person present. Oriented to unit, room, information board, rooming in, admission packet and security measures. Patient verbalizes understanding.
[2023-07-31 05:07] LABS: Hematocrit 32.6 % (37.0-47.0); Hemoglobin 10.9 g/dL (12.0-15.0)
--- NOTE | 2023-07-31 08:13 | PM.OBPNVD ---
OB - PN: Subj Subjective Date/time seen: 07/31/23 08:13 Patient comments: no complaints and pain well controlled baby status: doing well OB - PN: Obj Data Labs 07/31/23 04:56 Labs: Laboratory Results - last 24 hr 07/30/23 07/31/23 12:13 04:56 WBC 10.1 H RBC 4.14 L Hgb 11.8 L D 10.9 L Hct 35.8 L 32.6 L MCV 86.5 MCH 28.5 MCHC 33.0 RDW 14.4 Plt Count 131 L D MPV 10.1 Immature Gran % (Auto) 0.5 Neut % (Auto) 80.4 H Lymph % (Auto) 10.3 L [place] % (Auto) 5.9 Eos % (Auto) 2.5 Baso % (Auto) 0.4 Lymph # (Auto) 1.04 [place] # (Auto) 0.6 Eos # (Auto) 0.3 Baso # (Auto) 0.0 Abs Immat Gran (auto) 0.05 H Absolute Neuts (auto) 8.1 H Absolute Nucleated RBC 0.0 Nucleated RBC % 0.0 RPR Non-reactive Blood Type A Positive Antibody Screen Negative OB - PN A/P Plan day: 1 Plan: routine care, follow up 6 weeks and other (Plans condoms until IUD) Time Spent With Patient Time: Total time spent is greater than 50% in coordination of care (as documented) at patient's floor/unit and/or counseling patient: Exam : Bimanual exam- vagina & uterus: other (Uterus firm, nt @U)
--- NOTE | 2023-07-31 08:46 | WPDANLDPN2 ---
Anes-Prog Note L&D Date/Time: 07/31/23 08:46 Comfortable throughout: labor Neuraxial method: epidural Epidural/Spinal procedure site: clean & non-tender Neuro status: Neuro function grossly intact. Cardiovascular status: normal Respiratory status: normal Airway patency: baseline Mental status: baseline Post-Op hydration status: normal Vital Signs: Last Vital Signs Temp 37.1 C 07/31/23 02:46 Pulse 99 07/31/23 02:46 Resp 18 07/31/23 02:46 BP 121/55 L 07/31/23 02:46 Pulse Ox 97 07/31/23 02:46 O2 Del Method Room Air 07/30/23 14:07 Pain score (VAS): no complaints I/O: Intake & Output 07/30/23 07/31/23 07/31/23 23:59 07:59 15:59 Intake Total 1999 Output Total 860 Balance 1999 - Post-procedural complaints: none Patient feedback: Patient satisfied with anesthetic care.
--- NOTE | 2023-07-31 09:00 | PC.NURSE ---
PT introductions made and plan of care discussed per post , pain management, breast feeding, daily care activities. PT and spouse both recipients of such instructions and no barriers to learning identified. PT received such instructions per one to one discussion, mom baby care guide and demonstrations this shift . PT verbalized understanding of such care
[2023-07-31] MEDS: DOCUSATE SODIUM 100 MG CAPSULE PO ×2 (09:30→16:54)
[2023-07-31] MEDS: IBUPROFEN 600 MG TABLET PO ×2 (09:30→16:54)
[2023-07-31] MEDS: LANOLIN (LANSINOH) 7.5 GM CREAM 1 APPLIC TOPICAL (09:30)
[2023-07-31] MEDS: MULTIVIT/MIN/PREN/FOL AC/IRON TABLET 1 TAB PO (09:30)
[2023-07-31] MEDS: ACETAMINOPHEN 325 MG TABLET 650 MG PO ×2 (09:31→16:55)
[2023-08-01 07:20] VITALS: BP 117/68; PULSE 68; RESP 16; TEMP 36.6; O2SAT 98
[2023-08-01] MEDS: DOCUSATE SODIUM 100 MG CAPSULE PO (10:13)
[2023-08-01] MEDS: MULTIVIT/MIN/PREN/FOL AC/IRON TABLET 1 TAB PO (10:13)
[2023-08-03 10:21] VITALS: BP 134/76; PULSE 76; RESP 18; TEMP 36.8; O2SAT 100
== END 2023-08-01 11:45 | disposition home or self-care (01) | DRG 560 ==
LOC: ANHLDR 23:41 → ANHOB2 07-31 09:40 → ANHLDR 08-03 08:52 → ANHOB2 08-03 08:52
PROVIDERS: Admitting Provider Obstetrics & Gynecology Gynecology; PCP Advanced Practice Midwife; Visit Provider Obstetrics & Gynecology
DX: O69.1XX0 Labor and delivery complicated by cord around neck, with compression, not applicable or unspecified (principal); Z37.0 Single live birth; O36.8330 Maternal care for abnormalities of the fetal heart rate or rhythm, third trimester, not applicable or unspecified; Z3A.38 38 weeks gestation of pregnancy
CPT/HCPCS: 36415; 85014; 85018; 85025; 86592; 86850; 86900; 86901; 88307; A9270; J2371; J2590; J2795; J7030; J7120